=== PATIENT | male | born 1995 | race Caucasian/White ===

== ENCOUNTER 2022-09-24 22:16 | Emergency (ER) | payer OTHER, MEDICAID ==
[~2022-09-24] VITALS: Ht 170.2 cm; Wt 129.0 kg
[2022-09-24 22:33] VITALS: BP 160/97
== END 2022-09-25 00:15 | disposition home or self-care (01) ==
LOC: ER 22:16
DX: M54.2 Cervicalgia (principal); R51.9 Headache, unspecified; Z98.890 Other specified postprocedural states
CPT/HCPCS: 99281